=== PATIENT | male | born 1985 | race Caucasian/White ===

== ENCOUNTER 2017-07-06 12:29 | Emergency (ER) | payer OTHER ==
[~2017-07-06 12:29] MED LIST: Z.0.NO CURRENT MEDS
[2017-07-06 12:32] VITALS: BP 136/75; PULSE 94; RESP 16; O2SAT 99
[2017-07-06] MEDS ORDERED: SODIUM CHLORIDE 0.9% FLUSH 10 ML FLUSH IVF PRN (13:00)
[2017-07-06] MEDS ORDERED: LIDOCAINE 2%/EPINEPHrine 1:100,000 30ML MDV INFIL ONE (13:00)
--- NOTE | 2017-07-06 13:01 | PD ---
HPI . Seizure Chief Complaint: Seizure Time Seen by Provider: 12:43 Travel History International Travel<30 days: No Contact w/Intl Traveler<30days: No Traveled to known affect area: No History of Present Illness HPI This patient presents to us via [facility] after a seizure. EMS described the seizure as a tonic-clonic seizure associated with a post ictal period. The patient's only complaint is head pain. He states his last tetanus shot was about 2-3 years ago. The patient reports a previous seizure. Both the seizure today and the previous seizure occurred while he was working outside. [facility] Past Medical History Seizures: Yes (ISOLATED SEIZURE APPROX 3 YRS AGO.) Social History Alcohol Use: Yes (MODERATE USE) Tobacco Use: Yes (1/2 PPD) Substance Use: Yes (MARIJUANA) Allergies-Medications (Allergen,Severity, Reaction): Coded Allergies: No Known Allergies (Verified , 04/14/09) Reported Meds & Prescriptions Reported Meds & Active Scripts Active No Active Prescriptions or Reported Medications Review of Systems Except as stated in HPI: all other systems reviewed are Neg Eyes: No: Blurred Vision Gastrointestinal: No: Nausea, Vomiting Physical Exam Narrative GENERAL: The patient is awake and alert. SKIN: warm/dry. Laceration of the left eyebrow. HEAD: Normocephalic. EYES: Pupils equal and round. No scleral icterus. No injection or drainage. ENT: No nasal bleeding or discharge. Mucous membranes pink and moist. NECK: Trachea midline. Full range of motion without pain.. CARDIOVASCULAR: Regular rate and rhythm. RESPIRATORY: No accessory muscle use. Clear to auscultation. Breath sounds equal bilaterally. MUSCULOSKELETAL: No obvious deformities. NEUROLOGICAL: Awake and alert. He is oriented to person and place but not time. No obvious cranial nerve deficits. Motor grossly within normal limits. Normal speech. PSYCHIATRIC: Appropriate mood and affect; insight and judgment normal. Data Data Last Documented VS Vital Signs Date Time Temp Pulse Resp B/P (MAP) Pulse Ox O2 Delivery O2 Flow Rate FiO2 07/06/17 12:32 94 16 136/75 (95) 99 Orders Orders Complete Blood Count With Diff (07/06/17 12:47) Basic Metabolic Panel (Bmp) (07/06/17 12:47) Ct Brain W/O Iv Contrast(Rout) (07/06/17 ) Ecg Monitoring (07/06/17 12:47) Iv Access Insert/Monitor (07/06/17 12:47) Sodium Chloride 0.9% Flush (Ns Flush) (07/06/17 13:00) Magnesium (Mg) (07/06/17 12:47) Lidocai-Epi 2%-1:100,000 Inj (Xylocaine- (07/06/17 13:00) Lidocai-Epi 2%-1:100,000 Inj (Xylocaine- (07/06/17 13:02) Labs Laboratory Tests Test 07/06/17 13:05 White Blood Count 13.7 TH/MM3 Red Blood Count 4.47 MIL/MM3 Hemoglobin 14.4 GM/DL Hematocrit 42.4 % Mean Corpuscular Volume 94.8 FL Mean Corpuscular Hemoglobin 32.3 PG Mean Corpuscular Hemoglobin Concent 34.0 % Red Cell Distribution Width 12.4 % Platelet Count 219 TH/MM3 Mean Platelet Volume 8.7 FL Neutrophils (%) (Auto) 82.8 % Lymphocytes (%) (Auto) 12.3 % Monocytes (%) (Auto) 4.3 % Eosinophils (%) (Auto) 0.2 % Basophils (%) (Auto) 0.4 % Neutrophils # (Auto) 11.3 TH/MM3 Lymphocytes # (Auto) 1.7 TH/MM3 Monocytes # (Auto) 0.6 TH/MM3 Eosinophils # (Auto) 0.0 TH/MM3 Basophils # (Auto) 0.1 TH/MM3 CBC Comment DIFF FINAL Differential Comment Blood Urea Nitrogen 12 MG/DL Creatinine 0.97 MG/DL Random Glucose 105 MG/DL Calcium Level 8.8 MG/DL Magnesium Level 2.0 MG/DL Sodium Level 138 MEQ/L Potassium Level 4.1 MEQ/L Chloride Level 104 MEQ/L Carbon Dioxide Level 24.1 MEQ/L Anion Gap 10 MEQ/L Estimat Glomerular Filtration Rate 90 ML/MIN MDM Medical Decision Making Medical Screen Exam Complete: Yes Emergency Medical Condition: Yes Medical Record Reviewed: Yes (the patient was last seen for seizure in 2008. He had a negative workup at that time.) Interpretation(s) EKG shows a sinus rhythm with no ischemic change. Differential Diagnosis Differential diagnosis of seizure includes but is not limited to epilepsy, electrolyte abnormality, previous stroke, closed head injury Narrative Course This patient presents following a seizure. He has had one previous seizure and that was 8 years ago. I believe that the risk of anti-seizure medication outweighs the benefit due to the infrequency with which this patient has seizures. I will check his electrolytes and a CT of his head. He did fall and strike his head with the seizure. CT head neg. The patient will be instructed to follow-up with neurology for further assessment. Diagnosis Primary Impression: Seizure Additional Impression: Laceration of left eyebrow Qualified Codes: S01.112A - Laceration without foreign body of left eyelid and periocular area, initial encounter Referrals: Grace Weiner MD 3 days Scripts No Active Prescriptions or Reported Meds Disposition: 01 DISCHARGE HOME Condition: Stable Alida Shanks MD Jul 06, 2017 13:01
[2017-07-06] MEDS ORDERED: LIDOCAINE 2%/EPINEPHrine 1:100,000 50ML MDV ONE (13:02)
[2017-07-06 13:30] LABS: AUTOMATED NEUTROPHIL # 11.3 TH/MM3 (1.8-7.7); BASOPHIL # 0.1 TH/MM3 (0-0.2); BASOPHIL % 0.4 % (0.0-2.0); EOSINOPHIL % 0.2 % (0.0-4.0); HEMATOCRIT 42.4 % (39.0-51.0); HEMO FLAGS DIFF FINAL; LYMPH % 12.3 % (9.0-44.0); LYMPHOCYTE # 1.7 TH/MM3 (1.0-4.8); MEAN CELL VOLUME 94.8 FL (80.0-100.0); MEAN CORPUSCULAR HEMOGLOBIN 32.3 PG (27.0-34.0); MONO % 4.3 % (0.0-8.0); NEUT % 82.8 % (16.0-70.0); PLATELET COUNT 219 TH/MM3 (150-450); RED BLOOD COUNT 4.47 MIL/MM3 (4.50-5.90); RED CELL DISTRIBUTION WIDTH 12.4 % (11.6-17.2); WHITE BLOOD COUNT 13.7 TH/MM3 (4.0-11.0)
[2017-07-06 13:40] LABS: BICARBONATE 24.1 MEQ/L (21.0-32.0); POTASSIUM 4.1 MEQ/L (3.5-5.1)
--- NOTE | 2017-07-06 13:51 | PD ---
Physical Exam Narrative I was asked by Dr. Shanks to repair patient's lacerations. Please see her documentation for full H&P. Data Data Last Documented VS Vital Signs Date Time Temp Pulse Resp B/P (MAP) Pulse Ox O2 Delivery O2 Flow Rate FiO2 07/06/17 12:32 94 16 136/75 (95) 99 Orders Orders Complete Blood Count With Diff (07/06/17 12:47) Basic Metabolic Panel (Bmp) (07/06/17 12:47) Ct Brain W/O Iv Contrast(Rout) (07/06/17 ) Ecg Monitoring (07/06/17 12:47) Iv Access Insert/Monitor (07/06/17 12:47) Sodium Chloride 0.9% Flush (Ns Flush) (07/06/17 13:00) Magnesium (Mg) (07/06/17 12:47) Lidocai-Epi 2%-1:100,000 Inj (Xylocaine- (07/06/17 13:00) Lidocai-Epi 2%-1:100,000 Inj (Xylocaine- (07/06/17 13:02) Labs Laboratory Tests Test 07/06/17 13:05 White Blood Count 13.7 TH/MM3 Red Blood Count 4.47 MIL/MM3 Hemoglobin 14.4 GM/DL Hematocrit 42.4 % Mean Corpuscular Volume 94.8 FL Mean Corpuscular Hemoglobin 32.3 PG Mean Corpuscular Hemoglobin Concent 34.0 % Red Cell Distribution Width 12.4 % Platelet Count 219 TH/MM3 Mean Platelet Volume 8.7 FL Neutrophils (%) (Auto) 82.8 % Lymphocytes (%) (Auto) 12.3 % Monocytes (%) (Auto) 4.3 % Eosinophils (%) (Auto) 0.2 % Basophils (%) (Auto) 0.4 % Neutrophils # (Auto) 11.3 TH/MM3 Lymphocytes # (Auto) 1.7 TH/MM3 Monocytes # (Auto) 0.6 TH/MM3 Eosinophils # (Auto) 0.0 TH/MM3 Basophils # (Auto) 0.1 TH/MM3 CBC Comment DIFF FINAL Differential Comment Blood Urea Nitrogen 12 MG/DL Creatinine 0.97 MG/DL Random Glucose 105 MG/DL Calcium Level 8.8 MG/DL Magnesium Level 2.0 MG/DL Sodium Level 138 MEQ/L Potassium Level 4.1 MEQ/L Chloride Level 104 MEQ/L Carbon Dioxide Level 24.1 MEQ/L Anion Gap 10 MEQ/L Estimat Glomerular Filtration Rate 90 ML/MIN MDM Supervised Visit with [facility]: No Procedures Procedure Narrative LACERATION REPAIR LOCATION: Left eyebrow LENGTH: Approximately 2 cm in total length J-shaped NUMBER OF STITCHES/JEANIE: 4 simple interrupted REPAIR: Verbal consent was obtained. The area of the laceration was cleaned and prepped. The laceration was infiltrated with lidocaine with epi. The wound was copiously irrigated and explored without evidence of foreign body, bony involvement, ligament injury, tendon injury, or neurovascular injury. The wound was closed using 4-0 Vicryl. This was a single layer repair. A sterile dressing was applied by nurse. The patient was advised to keep the affected area as clean and dry as possible using soap and water. There were no complications. Patient tolerated the procedure well. LACERATION REPAIR LOCATION: Left upper eyelid lateral aspect LENGTH: Approximately 1.75 cm in total length NUMBER OF STITCHES/JEANIE: 4 simple interrupted REPAIR: Verbal consent was obtained. The area of the laceration was cleaned and prepped. The laceration was infiltrated with lidocaine with epi. The wound was copiously irrigated and explored without evidence of foreign body, bony involvement, ligament injury, tendon injury, or neurovascular injury. The wound was closed using 4-0 Vicryl. This was a single layer repair. A sterile dressing was applied by nurse. The patient was advised to keep the affected area as clean and dry as possible using soap and water. There were no complications. Patient tolerated the procedure well. Diagnosis Primary Impression: Seizure Additional Impression: Laceration of left eyebrow Qualified Codes: S01.112A - Laceration without foreign body of left eyelid and periocular area, initial encounter Scripts No Active Prescriptions or Reported Meds Armando Florez Jul 06, 2017 13:51
--- NOTE | 2017-07-06 15:22 | RADRPT ---
EXAM DATE/TIME: 07/06/2017 15:02 [place] COMPARISON: CT BRAIN W/O CONTRAST, April 14, 2009, 20:09. INDICATIONS : Possible seizure. Laceration to left frontal region. RADIATION DOSE: 40.11 CTDIvol (mGy) MEDICAL HISTORY : Seizures. SURGICAL HISTORY : None. ENCOUNTER: Initial ACUITY: 1 day PAIN SCALE: 2/10 LOCATION: Left frontal TECHNIQUE: Multiple contiguous axial images were obtained of the head. Using automated exposure control and adj ustment of the mA and/or kV according to patient size, radiation dose was kept as low as reasonably a chievable to obtain optimal diagnostic quality images. DICOM format image data is available electro nically for review and comparison. FINDINGS: CEREBRUM: The ventricles are normal for age. No evidence of midline shift, mass lesion, hemorrhage or acute in farction. No extra-axial fluid collections are seen. POSTERIOR FOSSA: The cerebellum and brainstem are intact. The 4th ventricle is midline. The cerebellopontine angle i s unremarkable. EXTRACRANIAL: The visualized portion of the orbits is intact. SKULL: The calvaria is intact. No evidence of skull fracture. CONCLUSION: Negative for an acute process. Dakotah Gonzales MD FACR on July 06, 2017 at 15:19 Board Certified Radiologist. This report was verified electronically.
--- NOTE | 2017-07-06 17:20 | EKG ---
Date Performed: 07/06/2017 Time Performed: 12:42:06 PTAGE: 32 years EKG: Sinus rhythm WITH SINUS ARRHYTHMIA POSSIBLE RIGHT VENTRICULAR CONDUCTION DELAY BORDERLINE ECG NO PREVIOUS TRACING DOCTOR: Mika Mooney Interpretating Date/Time 07/06/2017 17:17:52
== END 2017-07-06 15:50 | disposition home or self-care (01) ==
LOC: NEPE 12:29
DX: R56.9 Unspecified convulsions (principal); S01.112A Laceration without foreign body of left eyelid and periocular area, initial encounter; F17.200 Nicotine dependence, unspecified, uncomplicated; X58.XXXA Exposure to other specified factors, initial encounter
CPT/HCPCS: 12013; 70450; 80048; 83735; 85025; 93005